=== PATIENT | male | born 1970 | race Caucasian/White ===

== ENCOUNTER 2020-03-22 07:55 | Outpatient (CLI) | payer OTHER, SELFPAY ==
--- NOTE | ~2020-03-22 | US_ITS ---
US right upper quadrant DATE: 03/22/2020 08:24 INDICATION: Right upper quadrant abdominal pain TECHNIQUE: Real-time imaging of liver, pancreas, gallbladder areas; technologist notes the examinatio n is limited due to body habitus. COMPARISON: None FINDINGS: The pancreatic head, neck and proximal body appear unremarkable. The lateral body and tail are obscured by bowel gas. There is suboptimal penetration of the liver. No obvious hepatic space-occupying mass lesion is evide nt on this limited examination. Normal hepatic portal venous flow direction. No gallstones or gallbladder wall thickening or abnormal pericholecystic fluid collection. The common bile duct measures 4.6 mm, within normal range. IMPRESSION: Limited examination due to body habitus; pancreatic lateral body and tail are obscured No definite significant finding is noted otherwise Reviewed, dictated and finalized at [facility]. Reviewed, dictated and finalized at [facility]. IMPRESSION: Limited examination due to body habitus; pancreatic lateral body an d tail are obscured No definite significant finding is noted otherwise
== END 2020-03-22 07:56 | disposition home or self-care (01) ==
LOC: ANHIMG 08:00
PROVIDERS: PCP Physician Assistant; Visit Provider Physician Assistant
DX: R10.11 Right upper quadrant pain (principal)
CPT/HCPCS: 76705

== ENCOUNTER 2020-08-10 15:00 | Emergency (ER) | payer OTHER, SELFPAY ==
[2020-08-10 15:11] VITALS: BP 185/108; PULSE 84; RESP 16; TEMP 37.1; O2SAT 98
--- NOTE | 2020-08-10 15:21 | ED.GENADULT ---
HPI - General Adult General Chief complaint: Headache Stated complaint: blurred vision/headache/Sob Time Seen by Provider: 08/10/20 15:22 Source: patient and RN notes reviewed Mode of arrival: ambulatory Limitations: no limitations History of Present Illness HPI narrative: 49-year-old male presents with concern for 2 to 3-week history of runny nose, sinus pressure and pain behind his eyes, headache, red eyes, watery eyes, itchy eyes, cough, occasional shortness of breath. He reports in the last few days he has felt out of body. He reports a history of hypertension, has been taking his blood pressure medicine as prescribed. Denies any [id number] medications for his symptoms. He denies fever, body aches, chills, sweats. MD complaint: Upper respiratory infection Related Data Home Medications Medication Instructions Recorded Confirmed lisinopril-hydrochlorothiazide 1 tablet PO DAILY 08/10/20 08/10/20 Allergies Allergy/AdvReac Type Severity Reaction Status Date / Time Penicillins Allergy Mild Unknown Verified 08/10/20 15:27 Review of Systems Review of Systems: Narrative: CONSTITUTIONAL: Denies malaise, chills, sweats, or fever. EYES: Denies visual changes. Reports bilateral redness, itchiness, watery discharge. ENT: Reports rhinorrhea, congestion, sinus pain. Denies otalgia and sore throat. CARDIOVASCULAR: Denies chest pain, palpitations, or edema. RESPIRATORY: Reports cough with occasional dyspnea. GASTROINTESTINAL: Denies abdominal pain, nausea, vomiting, diarrhea SKIN: Denies rash or itching. MUSCULOSKELETAL: Denies myalgia. NEUROLOGIC: Reports headache. All systems reviewed & are unremarkable except as noted in HPI and below PMFSH Comments At time of signature, agree with nursing past medical, surgical, social and family history. There is no relevant family history pertinent to the presenting complaint Exam Narrative: Exam Narrative: GENERAL: Well-appearing, well-nourished, and in no acute distress. HEAD: Normocephalic EYES: PERRLA, conjunctivae clear ENT: Nares clear, turbinates edematous and erythematous, sinus tenderness. Mucous membranes moist. TM pearly lazaro with dull light reflex bilaterally; no tragal tenderness. Oropharynx not erythematous without lesions. Tonsils not enlarged and without exudate, no drooling, no hoarseness, no trismus, uvula midline. NECK: Supple. No lymphadenopathy CHEST: Clear to auscultation, breath sounds equal. No wheezing, rhonchi, rales, or stridor. No respiratory distress, speaks in full sentences. HEART: Regular rate and rhythm. No murmur heard. SKIN: Warm, dry, no rash. NEURO: Alert and oriented x3. No focal deficits, cranial nerves II through XII grossly intact PSYCH: Normal mood and affect Course Course Emergency Course: Patient is aware of diagnosis, understands and agrees to treatment plan. Anticipatory guidance given. Patient agrees to follow-up as directed and is aware of reasons to seek care at the emergency department. Portions of this record may have been created with voice recognition software Vital Signs Vital signs: Vital Signs Temperature 98.7 F 08/10/20 15:11 Pulse Rate 84 08/10/20 15:11 Respiratory Rate 16 08/10/20 15:11 Blood Pressure 185/108 H 08/10/20 15:11 Pulse Oximetry 98 08/10/20 15:11 Temperature 98.7 F 08/10/20 15:11 Pulse Rate 84 08/10/20 15:11 Respiratory Rate 16 08/10/20 15:11 Blood Pressure 185/108 H 08/10/20 15:11 Pulse Oximetry 98 08/10/20 15:11 Reviewed. Patient has history of hypertension, patient's blood pressure addressed during this visit, patient will follow-up with primary care provider Medical Decision Making MDM Narrative Medical decision making narrative: Differential diagnosis considered: Nunes virus, strep pharyngitis, allergic rhinitis, upper respiratory tract infection, sinusitis, rhinosinusitis, nasopharyngitis. viral pharyngitis, otitis media, otitis externa, pneumonia, bronchitis, vi
== END 2020-08-10 15:53 | disposition home or self-care (01) ==
PROVIDERS: Emergency Provider Nurse Practitioner
DX: J32.9 Chronic sinusitis, unspecified (principal); J40 Bronchitis, not specified as acute or chronic; I10 Essential (primary) hypertension
CPT/HCPCS: 99213; G0463

== ENCOUNTER 2020-08-14 11:15 | Emergency (ER) | payer OTHER, SELFPAY ==
[2020-08-14 11:25] VITALS: BP 148/94; PULSE 102; RESP 16; TEMP 36.9; O2SAT 98
--- NOTE | 2020-08-14 11:43 | ED.URI ---
HPI - URI/Sore Throat General Chief Complaint: Upper Respiratory Infection Stated Complaint: Headache/possble sinus infection Time Seen by Provider: 08/14/20 11:43 Source: patient Mode of arrival: ambulatory Limitations: no limitations History of Present Illness HPI Narrative: Ivy Valdivia is a 49 yo male with a PMH of hypertension who was seen here 4 days ago for URI and cough and wheezing has returned because patient still has sinus congestion and states he has been sleeping 6 hours a day for the last for 5 days. Incidentally his blood pressure still elevated today. He has been taking his medication as prescribed although he stopped taking be codeine cough medication because it made him feel strangely. He also states that the Flonase makes him feel excited. He does not look like he feels well-denies fever Related Data Home Medications Medication Instructions Recorded Confirmed lisinopril-hydrochlorothiazide 1 tablet PO DAILY 08/10/20 08/14/20 Allergies Allergy/AdvReac Type Severity Reaction Status Date / Time Penicillins Allergy Mild Unknown Verified 08/14/20 11:34 Review of Systems Review of Systems: Narrative: CONSTITUTIONAL: Denies fever, chills, sweats. EYES: Denies visual changes, redness, discharge. ENT: Denies rhinorrhea, congestion, sore throat, otalgia. CARDIOVASCULAR: Denies chest pain, palpitations, edema. RESPIRATORY: Denies dyspnea, mild wheezing, no cough-sinus pressure and tenderness GASTROINTESTINAL: Denies abdominal pain, nausea, vomiting, diarrhea. GENITOURINARY: Denies dysuria, hematuria, abnormal discharge SKIN: Denies rash or itching. NEUROLOGIC: Denies numbness, or focal weakness. PSYCHIATRIC: Denies anxiety or depression. [facility] Past Medical History Medical History Hypertension Family History Family History Other Hypertension Social History Social History Smoking status: Never smoker Alcohol intake: current Comments At time of signature, I agree with nursing past medical, surgical, social and family history. There is no relevant family history pertinent to the presenting complaint. Has appointment at end of month with a new primary care physician about his blood pressure Exam Narrative: Exam Narrative: GENERAL: This is a well-nourished, well-developed patient, in mild distress. HEAD: normocephalic, atraumatic. EYES:. Sclera clear/white. Vision is grossly intact. EARS: External ears normal, auditory canals clear and without drainage, TMs normal without perforation. Hearing grossly intact. NOSE: External nose normal without nasal discharge, nares with redness, mild rhinorrhea. THROAT: Mucous membranes moist, posterior pharynx mild erythema NECK: Neck supple,er CARDIOVASCULAR: Regular rate and rhythm without murmurs, gallops, or rubs. RESPIRATORY: Coarse to auscultation. Breath sounds equal bilaterally. Mild wheezes LLL,no rales, or rhonchi. GASTROINTESTINAL: Abdomen soft, large pannus SKIN: warm, intact with no suspicious lesions or rash, good texture and turgor. NEURO: awake, alert, and oriented to person, place and time. There were no obvious focal neurologic abnormalities. Steady gait EXTREMITIES: Normal range of motion. BACK: Nontender without deformity Course Course Emergency Course: Patient returns for URIs symptoms He has been taking medication as prescribed except cough medicine; blood pressure still elevated today and will need follow-up with primary care physician is more likely needs a second prescription in addition to his losartan. Ended 5 days Mucinex to his current prescription as patient states he will not tolerate the hyper feeling that steroids will cause. Given work excuse to cover the additional couple days he was at home Follow-up with PCP Vital Signs Vital signs: Vital Signs Te
== END 2020-08-14 12:05 | disposition home or self-care (01) ==
PROVIDERS: Emergency Provider Nurse Practitioner; PCP Physician Assistant
DX: J32.9 Chronic sinusitis, unspecified (principal); I10 Essential (primary) hypertension
CPT/HCPCS: 99213; G0463

== ENCOUNTER 2022-09-05 12:52 | Emergency (ER) | payer OTHER, SELFPAY ==
[2022-09-05 13:10] VITALS: BP 146/88; PULSE 88; RESP 16; TEMP 36.2; O2SAT 99
--- NOTE | 2022-09-05 13:34 | ED.BACK ---
HPI - Back Pain/Injury General Chief Complaint: Back Pain/Injury Stated Complaint: back pain Time Seen by Provider: 09/05/22 13:34 Source: patient, family, RN notes reviewed and old records reviewed Mode of arrival: ambulatory Limitations: no limitations History of Present Illness HPI Narrative: 51-year-old male presents to the [facility] with complaints of left lower pain. Pain radiates down his outer left leg. Has taken meloxicam and Robaxin with minimal relief. Had called his primary today and was told to go the emergency room. No midline tenderness. No loss retention of bowel or bladder. No saddle anesthesia. Denies any trauma. No bruising, swelling noted. No rash. MD elicited complaint: back pain Pertinent past history: prior back pain Related Data Home Medications Medication Instructions Recorded Confirmed lisinopril 10 1 tablet PO DAILY 08/10/20 09/05/22 mg-hydrochlorothiazide 12.5 mg tablet meloxicam 15 mg tablet 15 mg DIRECTED 09/05/22 09/05/22 methocarbamol 750 mg tablet 750 mg DIRECTED 09/05/22 09/05/22 Allergies Allergy/AdvReac Type Severity Reaction Status Date / Time Penicillins Allergy Mild Unknown Verified 08/14/20 11:34 Review of Systems Review of Systems: All systems reviewed & are unremarkable except as noted in HPI and below Constitutional: Constitutional: Reports no additional constitutional complaints and Denies weakness Eyes: Eyes: Reports no additional eye complaints ENT: Reports system reviewed and no additional complaints, except as documented Cardiovascular: Cardiovascular: Reports no additional cardiovascular complaints and Denies chest pain Respiratory: Respiratory: Reports no additional respiratory complaints Gastrointestinal: Gastrointestinal: Reports no additional gastrointestinal complaints and Denies abdominal pain Musculoskeletal: Musculoskeletal: Reports as per HPI, Reports back pain and Denies numbness Integumentary/Breasts: Skin/Breast: Reports system reviewed and no additional complaints, except as docu Neurologic: Reports system reviewed and no additional complaints, except as documented, Denies focal weakness, Denies numbness and Denies weakness Psychiatric: Psychiatric: Reports no additional psychiatric complaints Allergic/Immunologic: Allergic/Immunologic: Reports no additional allergic/immunologic complaints [facility] Past Medical History Medical History Hypertension Family History Family History Other Hypertension Social History Social History Smoking status: Never smoker Alcohol intake: current Comments At the time of my signature, I reviewed and agree with the nursing past medical, surgical, social, and family history. There is no relevant family history pertinent to the patient complaint. Exam Const: General: healthy appearing, no acute distress, alert and well nourished Nutritional Appearance: well nourished and obese morbidly obese Orientation/consciousness: patient oriented x3 Limitations: no limitations HENMT: Head: normal to inspection Eyes: Pupils: Equal, round and reactive pupils present Neck: Neck: normal visual inspection, no lymphadenopathy and no meningeal signs Chest: Chest palpation & inspection: normal inspection of the chest Resp: Effort & Inspection: normal respiratory effort and no use of accessory muscles Auscultation: clear to auscultation bilaterally, no crackles, no rales, no rhonchi and no wheezes Cardio: Rate: regular rate Rhythm: regular rhythm Back/Spine/Pelvis: Back: no CVA tenderness Cervical Spine: normal cervical lordosis, cervical ROM normal, No cervical muscular tenderness and No Cervical spine tenderness Thoracic/Lumbar Spine: thoracic and lumbar spine normal to inspection, No paraspinal muscle tenderness, No thoracic spinal
== END 2022-09-05 13:56 | disposition home or self-care (01) ==
PROVIDERS: Emergency Provider Nurse Practitioner; PCP Physician Assistant
DX: M54.42 Lumbago with sciatica, left side (principal); I10 Essential (primary) hypertension; Z79.1 Long term (current) use of non-steroidal anti-inflammatories (NSAID)
CPT/HCPCS: 99213; G0463

== ENCOUNTER 2023-01-22 16:47 | Outpatient (CLI) | payer OTHER, SELFPAY ==
[2023-01-22 17:50] LABS: Basophils Absolute Auto 0.1 K/mm3 (0.0-0.1); Basophils Percent Auto 1.1 % (0.2-1.2); Eosinophils Absolute Auto 0.2 K/mm3 (0-0.3); Eosinophils Percent Auto 2.8 % (0-4.4); Hematocrit 45.9 % (42.0-52.0); Hemoglobin 16.3 g/dL (14.0-18.0); Immature Granulocyte Absolute 0.04 K/mm3 (0.00-0.031); Immature Granulocyte Percent A 0.6 % (0-0.5); Lymphocytes Absolute Auto 1.46 K/mm3 (0.9-3.2); Lymphocytes Percent Auto 20.6 % (18.3-44.2); Mean Corpuscular HGB Conc 35.5 g/dl (32-36); Mean Corpuscular Hemoglobin 35.1 pg (26-34); Mean Corpuscular Volume 98.7 fl (80-100); Mean Platelet Volume 9.2 fl (7.4-10.4); Monocytes Absolute Auto 0.5 K/mm3 (0.1-0.6); Monocytes Percent Auto 7.1 % (2.6-8.5); Neutrophils Absolute Auto 4.8 K/mm3 (1.3-6.7); Neutrophils Percent Auto 67.8 % (45.5-73.1); Platelet Count Result 204 k/mm3 (150-375); Red Blood Count 4.65 M/mm3 (4.6-6.20); Red Cell Distribution Width 12.2 % (11.5-14.5); White Blood Count 7.1 K/mm3 (4.5-10.0)
[2023-01-22 18:02] LABS: Alanine Aminotransferase 35 U/L (6-50); Alkaline Phosphatase 91 U/L (38-126); Anion Gap 3 mmol/L (8-16); Aspartate Amino Transferase 38 U/L (17-59); Bilirubin,Total 0.9 mg/dL (0.2-1.3); Blood Urea Nitrogen 20 mg/dL (9-20); Calcium 8.9 mg/dL (8.4-10.2); Carbon Dioxide 34 mmol/L (22-30); Chloride 99 mmol/L (98-107); Cholesterol 199 mg/dL (0-200); Estimated Glomerular Filt Rate > 60; Glucose 129 mg/dL (65-110); HDL Direct 46 mg/dL; Potassium 4.2 mmol/L (3.4-5.0); Sodium 136 mmol/L (137-145); Triglycerides 388 mg/dL (<150)
[2023-01-22 18:13] LABS: LDL Cholesterol Direct 98 mg/dL
== END 2023-01-22 16:48 | disposition home or self-care (01) ==
LOC: ANHLAB 16:50
PROVIDERS: PCP Physician Assistant; Visit Provider Hospitalist
DX: Z00.00 Encounter for general adult medical examination without abnormal findings (principal)
CPT/HCPCS: 36415; 80053; 80061; 85025

== ENCOUNTER 2023-03-22 11:45 | Outpatient (CLI) | payer OTHER, SELFPAY ==
--- NOTE | ~2023-03-22 | MR_ITS ---
MRI of the lumbar spine Clinical History: Radiculopathy Technique: Axial T2-weighted images, and sagittal T1-weighted, T2-weighted, and T2 fat-sat images wer e acquired. Findings: There is no fracture or subluxation of the lumbar spine. Vertebral bodies maintain normal h eight and alignment. No suspicious bone marrow signal abnormality seen. At L1-L2, there is moderate degenerative disc narrowing. There is minimal diffuse disc bulge and mode rate facet arthropathy. No central canal stenosis or neural foraminal narrowing. At L2-L3, there is mild degenerative disc narrowing, with mild diffuse disc bulge and moderate facet arthropathy. No alonzo central canal stenosis. Bilateral neural foramina are preserved. At L3-L4, there is mild diffuse disc bulge, with superimposed left paracentral disc protrusion. There is moderate central canal stenosis/thecal sac compression and left lateral recess stenosis. There is advanced facet arthropathy. There is moderate left neural foraminal narrowing. Right neural foramen preserved. At L4-L5, there is advanced generative disc narrowing with small annular fissure. There is diffuse di sc bulge with moderate facet arthropathy. There is minimal central canal stenosis. There is mild to m oderate right neural foraminal narrowing, and minimal left neural foraminal narrowing. At L5-S1, there is minimal disc bulge. There is mild facet arthropathy. There is no central canal bebo nosis. There is moderate right neural foraminal narrowing and mild left neural foraminal narrowing. Paravertebral soft tissues are unremarkable. Impression: Moderate to advanced degenerative spondylosis, as detailed above, worst at L3-L4. Reviewed, dictated and finalized at [facility]. Impression: Moderate to advanced degenerative spondylosis, as detailed above, worst at L3-L 4.
== END 2023-03-22 11:46 ==
LOC: MICIMG 11:48
PROVIDERS: PCP Hospitalist; Visit Provider Anesthesiology
DX: M47.26 Other spondylosis with radiculopathy, lumbar region (principal)
CPT/HCPCS: 72148

== ENCOUNTER 2024-02-29 08:45 | Outpatient (CLI) | payer OTHER, SELFPAY ==
[2024-02-29 09:29] LABS: Basophils Absolute Auto 0.1 K/mm3 (0.0-0.1); Basophils Percent Auto 0.7 % (0.2-1.2); Eosinophils Percent Auto 0.4 % (0-4.4); Hematocrit 47.8 % (42.0-52.0); Hemoglobin 16.6 g/dL (14.0-18.0); Immature Granulocyte Absolute 0.03 K/mm3 (0.00-0.031); Immature Granulocyte Percent A 0.3 % (0-0.5); Lymphocytes Absolute Auto 1.14 K/mm3 (0.9-3.2); Lymphocytes Percent Auto 12.7 % (18.3-44.2); Mean Corpuscular HGB Conc 34.7 g/dl (32-36); Mean Corpuscular Hemoglobin 35.9 pg (26-34); Mean Corpuscular Volume 103.5 fl (80-100); Mean Platelet Volume 9.4 fl (7.4-10.4); Monocytes Absolute Auto 0.7 K/mm3 (0.1-0.6); Monocytes Percent Auto 7.6 % (2.6-8.5); Neutrophils Percent Auto 78.3 % (45.5-73.1); Platelet Count Result 190 k/mm3 (150-375); Red Blood Count 4.62 M/mm3 (4.6-6.20); Red Cell Distribution Width 12.4 % (11.5-14.5)
[2024-02-29 09:40] LABS: Alanine Aminotransferase 46 U/L (6-50); Albumin Level 4.5 g/dL (3.5-5.1); Alkaline Phosphatase 89 U/L (38-126); Anion Gap 6 mmol/L (4-12); Aspartate Amino Transferase 39 U/L (17-59); Blood Urea Nitrogen 23 mg/dL (9-20); Calcium 9.4 mg/dL (8.4-10.2); Carbon Dioxide 29 mmol/L (22-30); Chloride 103 mmol/L (98-107); Estimated Glomerular Filt Rate > 60; Glucose 132 mg/dL (65-110); Potassium 3.6 mmol/L (3.4-5.0); Sodium 138 mmol/L (137-145)
[2024-02-29 10:11] LABS: Prostate Specific Antigen 0.5 ng/mL (< OR = 4.0)
== END 2024-02-29 08:46 | disposition home or self-care (01) ==
LOC: ANHLAB 08:49
PROVIDERS: PCP Hospitalist; Visit Provider Hospitalist
DX: Z00.00 Encounter for general adult medical examination without abnormal findings (principal); E66.01 Morbid (severe) obesity due to excess calories; Z68.42 Body mass index [BMI] 45.0-49.9, adult
CPT/HCPCS: 36415; 80053; 84153; 85025

== ENCOUNTER 2024-12-20 08:15 | Emergency (ER) | payer OTHER, SELFPAY ==
--- NOTE | ~2024-12-20 | XR_ITS ---
EXAMINATION: XR chest 2V DATE: 12/20/2024 08:53 INDICATION: Productive cough TECHNIQUE: PA and lateral views of the chest were obtained. COMPARISON: Chest radiograph dated 12/29/2018 FINDINGS: The lungs remain clear with no focal airspace opacities, pulmonary edema, pleural effusion or pneumot horax. The cardiomediastinal silhouette is normal. Mild thoracic spondylosis. IMPRESSION: 1. No acute cardiopulmonary disease. Reviewed, dictated and finalized at location [facility]. [facility]
--- NOTE | 2024-12-20 08:18 | ED.URI ---
HPI - URI/Sore Throat General Chief Complaint: Upper Respiratory Infection Stated Complaint: Cough/Sore Throat Time Seen by Provider: 12/20/24 08:40 Source: patient, RN notes reviewed and old records reviewed Mode of arrival: ambulatory Limitations: no limitations History of Present Illness HPI Narrative: 54-year-old presents to the [facility] with complaints of 2-3 day history of cough, congestion. Denies body aches. Reports intermittent shortness of breath. Denies fevers. Also reports significant amount of sinus drainage, postnasal drainage. Has been taking Mucinex. Denies chest pain Patient reports that he has been exposed to both COVID and flu in the last 2 weeks Treatments prior to arrival: cold medicine Related Data Home Medications ?Medication ?Instructions ?Recorded ?Confirmed ?Last Taken ?Type lisinopril 10 1 tablet PO DAILY 08/10/20 09/05/22 08/10/20 History mg-hydrochlorothiazide 12.5 mg tablet meloxicam 15 mg tablet 15 mg DIRECTED 09/05/22 09/05/22 Unknown History methocarbamol 750 mg tablet 750 mg DIRECTED 09/05/22 09/05/22 Unknown History epinephrine 0.3 mg/0.3 mL 12/20/24 Unknown History injection, auto-injector Allergies Allergy/AdvReac Type Severity Reaction Status Date / Time Penicillins Allergy Mild Unknown Verified 12/20/24 08:39 Review of Systems Review of Systems: All systems reviewed & are unremarkable except as noted in HPI and below Constitutional: Constitutional: Reports no additional constitutional complaints ENT: Reports as per HPI Cardiovascular: Cardiovascular: Reports no additional cardiovascular complaints, Denies chest pain and Denies dyspnea Respiratory: Respiratory: Reports as per HPI, Reports chest congestion, Reports cough and Reports dyspnea Musculoskeletal: Musculoskeletal: Reports no additional musculoskeletal complaints Integumentary/Breasts: Skin/Breast: Reports system reviewed and no additional complaints, except as docu PMFSH Past Medical History Medical History Hypertension Family History Family History Other Hypertension Social History Social History Smoking status: Never smoker Alcohol intake: current Comments At the time of my signature, I reviewed and agree with the nursing past medical, surgical, social, and family history. There is no relevant family history pertinent to the patient complaint. Exam Const: General: cooperative, healthy appearing, comfortable, no acute distress, well developed, alert and well nourished Nutritional Appearance: well nourished and obese Orientation/consciousness: patient oriented x3 Limitations: no limitations HENMT: Head: normal to inspection Ears: hearing grossly normal bilaterally, external ears normal, TM's normal bilaterally, EAC's normal, mastoids normal and no periauricular adenopathy Face/Nose/Sinus: Normal external nose present and Nasal discharge present clear Mouth: Yes Normal oral and palatal mucosa present, Yes lip normal, Yes tongue normal and Yes moist mucous membranes Throat: uvula midline, postnasal drainage and no uvular edema Eyes: General: appearance normal, both eyes and all related structures Alignment and Position: alignment normal Neck: Neck: normal visual inspection, full ROM, no lymphadenopathy and no meningeal signs Chest: Chest palpation & inspection: normal inspection of the chest Resp: Effort & Inspection: normal respiratory effort and able to speak in complete sentences Auscultation: no crackles, no rales, no rhonchi and wheezes throughout Cardio: Rate: regular rate Skin: General skin exam: normal color and no rashes or lesions noted Neuro: General: patient oriented x3, gait normal, moves all extremities and no meningeal signs Cognition (Neuro): normal cognition Speech: normal speech Gait exam (Neuro): Normal gait present Extrem: General: normal to inspection, full ROM, capillary refill normal and normal gait Psych: Appearance: grossly normal and well kempt Mental Status: mental status grossly normal Speech and movement: Normal speech and movement present and Clear speech present Affect: normal affect Attitude: cooperative Course Course Level of Care: Express Care Visit Vital Signs Vital signs: Vital Signs Temperature 98.0 F 12/20/24 08:44 Pulse Rate 84 12/20/24 08:44 Respiratory Rate 20 12/20/24 08:44 Blood Pressure 143/68 H 12/20/24 08:44 Pulse Oximetry 93 12/20/24 08:44 Oxygen Delivery Room Air 12/20/24 08:44 Temperature 98.0 F 12/20/24 08:44 Pulse Rate 84 12/20/24 08:45 Respiratory Rate 20 12/20/24 08:45 Blood Pressure 143/68 H 02/15/25 08:44 Pulse Oximetry 93 12/20/24 08:45 Oxygen Delivery Room Air 12/20/24 08:44 Reviewed MDM - URI/Sore Throat MDM Narrative Medical decision making narrative: Patient sitting in exam. Nontoxic, vitals stable. Patient in no acute distress. Patient with cough, congestion for 2-3 days. Flu, COVID are negative. X-ray is negative. Exam and history of present illness consistent with viral bronchitis. Patient is appropriate for outpatient treatment with close follow-up Discharge instructions reviewed with patient, as well as provided in writing per nursing staff. The instructions also include specific and strict return/GO TO THE ER as well as f/u information. All questions have been answered, and the patient deny any further questions with discharge and discharge plan. Some parts of this dictation were generated by voice recognition software and may contain typographical and/or grammatical inaccuracies. Differential Diagnosis Differential diagnosis: Likely upper respiratory infection, otitis media, sinusitis, viral infection, bronchitis, influenza and pharyngitis Lab Data Labs: Lab Results 12/20/24 Range/Units 08:59 POC Influenza A Ag Negative (Negative) POC Influenza B Ag Negative (Negative) POC SARS CoV-2 Ag Negative (Negative) Reviewed Imaging Data Radiologist's impression: EXAMINATION: XR chest 2V DATE: 12/20/2024 08:53 INDICATION: Productive cough TECHNIQUE: PA and lateral views of the chest were obtained. COMPARISON: Chest radiograph dated 12/29/2018 FINDINGS: The lungs remain clear with no focal airspace opacities, pulmonary edema, pleural effusion or pneumothorax. The cardiomediastinal silhouette is normal. Mild thoracic spondylosis. IMPRESSION: 1. No acute cardiopulmonary disease. Critical Care Time Critical Care Time Critical Care Time: No Discharge Plan Discharge Clinical Impression: Bronchitis Sinusitis Qualifiers: Sinusitis location: unspecified location Chronicity: acute Recurrence: not specified as recurrent Qualified Code(s): J01.90 - Acute sinusitis, unspecified Patient Disposition: Home, Self-Care Condition: Stable Instructions: Antibiotic Form, Sinusitis (ED), Acute Bronchitis (ED) Additional Instructions: Your rapid COVID test were negative Your rapid flu test was negative Your symptoms are likely due to a viral illness, which is not treated with antibiotics. Typically viral infections last 7-10 days, can linger for couple of weeks. It is very important to treat your symptoms. Drink plenty of water, Gatorade, Pedialyte, ice pops or Jell-O. -Alternate Tylenol and Motrin per package directions for fever or pain. You can alternate every 4 hours -Antihistamine medication such as Zyrtec/Claritin/Apple during the day can help improve symptoms. -doing daily nasal irrigations can help relieve pressure your sinuses. Things like a Neti pot -Use Flonase twice a day for 5 days then daily to help reduce the inflammation and dry up your sinuses. -You can also use Mucinex. Be sure to drink plenty of water with this medication at least 8 ounces with every dose and it is important to drink 8 to 10 glasses of water per day. Water is a natural decongestant -Eat and drink things that are easy to swallow, like tea or soup, or popsicles. -Oral rinses such as: Salt water gargles and/or may use topical anesthetic (eg. Chloraseptic spray) or lozenges to relieve dryness or throat pain). -Frequent hand washing or hand aircrewman is one of the best ways to prevent spread of infection. -Using a vaporizer or humidifier at night will also help thin secretions and help with coughing up phlegm. -Follow up with primary care provider in 7-10 days if condition is not improving - For new or worsening symptoms go directly to the nearest ER Patient Language: Guatemalan Prescriptions: New albuterol sulfate 90 mcg/actuation HFA aerosol inhaler 2 puff inhalation QID PRN (Reason: shortness of breath or wheezing) Qty: 6.7 0RF (DME) Aerochamber MV Spacer See Rx Instructions .Route Qty: 1 0RF Rx Instructions: As directed prednisone 20 mg tablet See Rx Instructions .Route .COMPLEX Qty: 9 0RF Rx Instructions: Take 40 mg daily for 3 days, 20 mg daily for 3 days No Action lisinopril-hydrochlorothiazide 10-12.5 mg tablet 1 tablet PO DAILY meloxicam 15 mg tablet 15 mg DIRECTED methocarbamol 750 mg tablet 750 mg DIRECTED epinephrine 0.3 mg/0.3 mL auto-injector Follow-up/Referrals: Elver,Jeffrey Travis Jr., MD [Primary Care Provider] - 2 Weeks (express care follow up) Stand Alone Forms: Work/School Release IP Time of Disposition: 09:08
[2024-12-20 08:44] VITALS: BP 143/68; PULSE 84; RESP 20; TEMP 36.7; O2SAT 93
[2024-12-20 08:45] VITALS: PULSE 84; RESP 20; O2SAT 93
[2024-12-20 09:01] LABS: EDCOVIDSCREEN Negative (Negative); EDINFLUASCREEN Negative (Negative); EDINFLUBSCREEN Negative (Negative)
== END 2024-12-20 09:15 | disposition home or self-care (01) ==
PROVIDERS: Emergency Provider Nurse Practitioner; PCP Hospitalist
DX: J40 Bronchitis, not specified as acute or chronic (principal); J01.90 Acute sinusitis, unspecified; I10 Essential (primary) hypertension; Z20.822 Contact with and (suspected) exposure to COVID-19
CPT/HCPCS: 71046; 87426; 87804; 99213; G0463